=== PATIENT | male | born 1980 | race African-American/Black ===

== ENCOUNTER 2020-12-19 17:09 | Emergency (ER) | payer SELFPAY ==
[~2020-12-19] VITALS: Ht 175.3 cm; Wt 88.1 kg
[2020-12-19 17:17] VITALS: BP 137/79
[2020-12-19] MEDS ORDERED: metroNIDAZOLE 500 MG TABLET PO ONE (17:30)
[2020-12-19] MEDS ORDERED: DOXYCYCLINE HYCLATE 100 MG TABLET PO ONE (17:30)
[2020-12-19] MEDS ORDERED: cefTRIAXone IM 250 MG VIAL IM ONE (17:30)
[2020-12-19] MEDS ORDERED: DOXY100T PO (17:45)
--- NOTE | 2020-12-19 17:45 | PHYS DOC ---
General Adult EDM: Chief Complaint: SEXUALLY TRANSMITTED DISEASE HPI: HPI: Patient is a 40 year old male who presents to the ED today for STD treatment. Patient states he had sex a couple days ago and the condom broke. He would like to be treated or not tested. Review of Systems: Review of Systems: Constitutional: Denies fever or chills. [] GI: Denies abdominal pain, nausea, vomiting, bloody stools or diarrhea. [] : Request for STD treatment. Denies dysuria. [] Musculoskeletal: Denies back pain or joint pain. [] Integument: Denies rash. [] Neurologic: Denies headache, focal weakness or sensory changes. [] Psychiatric: Denies depression or anxiety. [] Heart Score: Risk Factors: Risk Factors: DM, Current or recent (<one month) smoker, HTN, HLP, family history of CAD, obesity. Risk Scores: Score 0 - 3: 2.5% MACE over next 6 weeks - Discharge Home Score 4 - 6: 20.3% MACE over next 6 weeks - Admit for Clinical Observation Score 7 - 10: 72.7% MACE over next 6 weeks - Early Invasive Strategies Current Medications: Current Medications Medications (Trade) Dose Ordered Sig/Judith Start Time Stop Time Status Last Admin Dose Admin Ceftriaxone Sodium (Rocephin Im) 500 mg 1X ONCE 12/19/20 17:30 12/19/20 17:31 DC 12/19/20 17:37 500 MG Doxycycline Hyclate (Vibra-Tab) 100 mg 1X ONCE 12/19/20 17:30 12/19/20 17:31 DC 12/19/20 17:37 100 MG Metronidazole (Flagyl) 2,000 mg 1X ONCE 12/19/20 17:30 12/19/20 17:31 DC 12/19/20 17:37 2,000 MG Allergies: Allergies: Allergies Coded Allergies Type Severity Reaction Last Updated Verified shellfish derived Allergy Severe ANAPHYLAXIS 12/19/20 Yes Physical Exam: PE: Constitutional: Well developed, well nourished, no acute distress, non-toxic appearance. [] HENT: Normocephalic, atraumatic, bilateral external ears normal, oropharynx moist, no oral exudates, nose normal. [] Eyes: PERRLA, EOMI, conjunctiva normal, no discharge. [] Neck: Normal range of motion, no tenderness, supple, no stridor. [] Cardiovascular:Heart rate regular rhythm, no murmur [] Lungs & Thorax: Bilateral breath sounds clear to auscultation [] Abdomen: Bowel sounds normal, soft, no tenderness, no masses, no pulsatile m asses. [] Skin: Warm, dry, no erythema, no rash. [] Back: No tenderness, no CVA tenderness. [] Extremities: No tenderness, no cyanosis, no clubbing, ROM intact, no edema. [] Neurologic: Alert and oriented X 3, normal motor function, normal sensory function, no focal deficits noted. [] Psychologic: Affect normal, judgement normal, mood normal. [] EKG: EKG: [] Radiology/Procedures: Radiology/Procedures: [] Course & Med Decision Making: Course & Med Decision Making Pertinent Labs and Imaging studies reviewed. (See chart for details) 40-year-old male patient who presents to the ED today requesting STD treatment after his condom broke. Treatment was provided by new CDC treatment protocol, STD education was also provided. Peyman Disclaimer: Peyman Disclaimer: This electronic medical record was generated, in whole or in part, using a voice recognition dictation system. Departure Departure Impression: Primary Impression: Concern about STD in male without diagnosis Disposition: 01 DC HOME SELF CARE/HOMELESS Condition: STABLE Referrals: NO PCP (PCP) Follow-up with the health department as needed Patient Instructions: Sexually Transmitted Disease, [id number] Additional Instructions: You were treated for STDs. Complete your antibiotic. Follow-up with the health department as needed. Use protection at all times Scripts Doxycycline Hyclate (DOXYCYCLINE HYCLATE) 100 Mg Tablet 1 TAB PO BID, #14 TAB Prov: ELIANEPRAKASH KAREN 12/19/20 JENNIFERDiamondPRAKASH APRN Dec 19, 2020 17:45
== END 2020-12-19 18:03 | disposition home or self-care (01) ==
LOC: ER 17:09
DX: A64 Unspecified sexually transmitted disease (principal); Z20.2 Contact with and (suspected) exposure to infections with a predominantly sexual mode of transmission; Z91.013 Allergy to seafood
CPT/HCPCS: 96372; 99283; J0696